=== PATIENT | female | born 1960 | race Caucasian/White ===

== ENCOUNTER 2022-01-23 15:20 | Inpatient (IN) | payer OTHER ==
[~2022-01-23] VITALS: Ht 160 cm; Wt 58.5 kg
--- NOTE | 2022-01-23 15:25 | NUR ---
Patient BIB [facility] to bed 1
[2022-01-23 15:40] VITALS: BP 72/51
--- NOTE | 2022-01-23 16:24 | NUR ---
61 y/o female biba from home, c/o dizziness, hypotensive, n&v, c-diff diarrhea for 3 days. skin is pale/cool/dry, pt has some redness/bruising on bl upper extremities. a&o x4, pt does not ambulate at this time. lungs clear bl, heart rate even and tachy at 100. pt denies dysuria, hematuria, urinary frequency or retention, or anyone sick in the household with the same symptoms, pt is diapered. pt denies any fever, cp, sob, or cough at this time. pt states pain is 10/10 at this time. patient positioned for comfort. hob elevated. bed down. ermd made aware of pt. en route, pt was hypotensive 76/48. pmh: hld, htn, neuropathy, copd nka
[2022-01-23 16:55] LABS: BASOPHILS # (AUTO) 0.2 K/uL (0.00-0.22); BASOPHILS % (AUTO) 1.9 % (0.0-2.0); EOSINOPHILS % (AUTO) 0.1 % (0.0-4.0); HEMATOCRIT 41.6 % (36-48); HEMOGLOBIN 13.6 g/dL (12.0-16.0); LYMPHOCYTES # (AUTO) 0.9 K/uL (2.5-16.5); LYMPHOCYTES % (AUTO) 9.3 % (20.5-51.1); MEAN CORPUSCULAR HEMOGLOBIN 33 pg (27-31); MEAN CORPUSCULAR HGB CONC 33 g/dL (33-37); MONOCYTES # (AUTO) 0.6 K/uL (0.8-1.0); MONOCYTES % (AUTO) 6.4 % (1.7-9.3); NEUTROPHILS # (AUTO) 8.1 K/uL (1.8-7.7); NEUTROPHILS % (AUTO) 82.3 % (42.2-75.2); PLATELET COUNT (AUTO) 352 K/uL (140-450); WHITE BLOOD COUNT (AUTO) 9.8 K/uL (4.8-10.8)
[2022-01-23 17:16] LABS: ALBUMIN 2.5 g/dL (3.4-5.0); ANION GAP 9.6 (8-16); CARBON DIOXIDE 34.2 mmol/L (21-32); CREATININE 0.6 mg/dL (0.6-1.3); POTASSIUM 5.8 mmol/L (3.5-5.1); TOTAL BILIRUBIN 0.7 mg/dL (0.0-1.0)
[2022-01-23] MEDS ORDERED: ALLO100T21 PO (17:19)
[2022-01-23] MEDS ORDERED: GABA300C PO (17:19)
[2022-01-23] MEDS ORDERED: FOLI0.8T9 PO (17:19)
--- NOTE | 2022-01-23 17:19 | NUR ---
nader swabbed at this time
--- NOTE | 2022-01-23 18:00 | NUR ---
[place] [id number]
--- NOTE | 2022-01-23 18:49 | NUR ---
pt was turned on left side, no wounds present, no bm at this time.
--- NOTE | 2022-01-23 19:23 | NUR ---
Pt report given to Kitty KEENE. Transfer of care at this time.
--- NOTE | 2022-01-23 19:30 | NUR ---
REPORT RECIEVED FROM GERMAN HOPPER
--- NOTE | 2022-01-23 19:56 | NUR ---
Eugenie almanza in [facility] - 01/23/22 at 1956 by NIYAH 20GM
--- NOTE | 2022-01-23 19:57 | NUR ---
20G IV CATH R AC PLACED
--- NOTE | 2022-01-23 20:36 | NUR ---
PT RESTING IN BED . DENIES ANY SOB OR CP. PAIN IN UPPER AND LOWER EXTREMITIES 10/10 PAIN. PT ON MONITOR
--- NOTE | 2022-01-23 20:52 | NUR ---
SURGERY AT BED SIDE. OBTAINED PT INFORMATION ON LABS AND HP
[2022-01-23] MEDS ORDERED: NACL 0.9% 1,000 ML IV ONE (21:35)
--- NOTE | 2022-01-23 21:41 | NUR ---
PATIENT STATES SHE FEELS RESTRICTED ON MOVEMENT AND IS UNCOMFORTABLE. HOB IS ELEVATED. DENIES ANY CP OR SOB.
[2022-01-23] MEDS ORDERED: LIDOCAINE 1% 500 MG/50 ML VIAL ONE (22:03)
[2022-01-23] MEDS ORDERED: MIDAZOLAM 5 MG/5 ML VIAL ONE (22:04)
--- NOTE | 2022-01-23 22:09 | NUR ---
DR ORDONEZ AT BEDSIDE
--- NOTE | 2022-01-23 22:16 | NUR ---
CONSENT SIGNED BY PATIENT. DR ORDONEZ EXPLAINED PROCEDURE TO PATIENT AT BEDSIDE.
--- NOTE | 2022-01-23 22:20 | NUR ---
PATIENTS BELONGINGS SENT WITH SURGERY. MED RECON. COMPLETED FROM DAYSHIFT RUCHI.
--- NOTE | 2022-01-23 22:24 | NUR ---
Patient will be admitted to care of DR SÁNCHEZ . Admited to ICU. Will go to SURGERY THEN BE ADMITED TO ICU BED 8. Belongings list completed. Report to SURGERY .
--- NOTE | 2022-01-23 22:24 | NUR ---
PT LEFT FOR SURGERY . LAST VITALS TAKEN.
[2022-01-23] MEDS ORDERED: ONDANSETRON 4 MG/2 ML VIAL IM/IVP PRN (23:40)
[2022-01-23] MEDS ORDERED: ZOLPIDEM 5 MG TAB PO PRN (23:40)
[2022-01-23] MEDS ORDERED: DOCUSATE SODIUM 100 MG GELCAP PO PRN (23:40)
[2022-01-23] MEDS ORDERED: HYDROcodone/APAP 7.5/325 MG 1 TAB PO PRN (23:40)
[2022-01-23] MEDS ORDERED: ACETAMINOPHEN 325 MG TAB PO PRN (23:40)
[2022-01-23] MEDS ORDERED: guaiFENesin DM 200/20 MG-10 ML 10 ML UDC PO PRN (23:40)
--- NOTE | 2022-01-23 23:45 | NUR ---
PT ARRIVED IN [facility] TO ICU BED 8 FROM OR DEPARTMENT, BEDSIDE REPORT RECEIVED. PER OPERATIONS SUPERVISOR 2ND SHIFT [place], R FEMORAL TLC REMOVED INCLUDING THE GUIDE WIRE THROUGH R FEMORAL SITE, R FEMORAL SITE COVERED WITH GAUZE WITH NO BLEEDING NOTED. PT IN NO APPARENT ACUTE DISTRESS AOX4, PERRLA, BRISK +3MM. BREATHING EVEN AND UNLABORED ON NC AT 2L/MIN, O2 SAT 96%, BILATERAL COARSE BREATH SOUNDS UPON AUSCULTATION. IV SITES ON R INDEX FINGER 22 G, R HAND 22 G, R AC 20 G, AND LEFT HAND 24 G. RECEIVING D5 NS AT 125 ML/HR. NOTED SCABS ON RIGHT UPPER AND LOWER EXTREMITIES, PICTURES TAKEN AND DOCUMENTED, PLEASE SEE WOUND NOTES. PT CONTINENT ABLE TO USE BEDPAN. ALL SAFETY MEASURES IN PLACE, BED LOCKED AT LOWEST POSITION, CALL LIGHT WITHIN REACH. WILL CONTINUE TO CLOSELY MONITOR AND FOLLOW POC.
[2022-01-23] MEDS ORDERED: NACL 0.9% 2,000 ML IV ONE (23:50)
[2022-01-23] MEDS ORDERED: NOREPINEPHRINE 4 MG in DEXTROSE 5% 250 ML IV PRN (23:50)
[2022-01-24] VITALS (9 sets, daily range): BP systolic 79–152; BP diastolic 53–108
[2022-01-24 00:10] LABS: CHOL/HDL RATIO 1.3 (1-4.5); PHOSPHORUS 4.3 mg/dL (2.5-4.9); THYROID STIMULATING HORMONE 2.15 uIU/mL (0.34-3.74)
[2022-01-24 00:38] LABS: FREE T4 (FREE THYROXINE) 1.15 ng/dL (0.76-1.46); MAGNESIUM 1.7 mg/dL (1.8-2.4)
[2022-01-24] MEDS ORDERED: cefTRIAXone 1,000 MG VIAL ONE (01:03)
[2022-01-24] MEDS ORDERED: WATER STERILE 10 ML MC ONE ×2 (01:04→01:09)
[2022-01-24] MEDS: VANCOMYCIN 500 MG VIAL PO SCH ×2 (01:17→06:00)
--- NOTE | 2022-01-24 01:42 | NUR ---
PHONE CALL TO [place], PTS EX PER PTS REQUEST; LEFT MESSAGE TO CALL BACK RN IN ICU
[2022-01-24] MEDS ORDERED: ALBUTEROL SULFATE/IPRATROPIU 3 ML SOL IH PRN (01:50)
--- NOTE | 2022-01-24 02:00 | NUR ---
PHONE CALL FROM [place], OF [place], PER PT OK TO GIVE INFORMATION TO HER, UPDATED ON PTS PRESENT CONDITION.PER CY[place]THIA, [place] IS SLEEPING AND WILL CALL IN AM, PT AWARE
--- NOTE | 2022-01-24 02:01 | NUR ---
PT SEEN AND ASSESSED. PATIENT HAS Hx COPD. PT AWAKE AND ALERT, AND PT IS ON 2L NASAL CANNULA WITH SPO2 OF 98%. WEAN PT OFF TO ROOM AIR AND PT DID NOT TOLERATE WELL. SPO2 DROPPED TO 84% TO 86%. PLACED PT BACK ON 2L NASAL CANNULA WITH SPO2 95%. BILATERAL CRACKLES BREATH SOUNDS ON AUSCULTATION. ORDERED HHN PRN TX AND OXYGEN FOR PT. RN NOTIFIED. WILL CONTINUE TO MONITOR PT.
--- NOTE | 2022-01-24 03:08 | NUR ---
BM NOTED; MODERATE AMT OF SOFT TO WATERY STOOL, UNABLE TO OBTAIN SPECIMEN FOR STOOL C.DIFF AND URINALYSIS; PT ALREADY URINATED AND DEFECATED AT THE SAME TIME
--- NOTE | 2022-01-24 05:00 | NUR ---
OFFERED PT BEDPAN, BM AND URINE NOTED, PT UNABLE TO PROVIDE SAMPLE OF URINE OR STOOL AT THIS TIME. PT IN NO APPARENT ACUTE DISTRESS, CONTINUES AOX4, NEURO ASSESSMENT DONE AND WNL. CONTINUES RECEIVING D5NS AT 125 ML/HR. ALL SAFETY MEASURES IN PLACE, WILL CONTINUE TO CLOSELY MONITOR AND FOLLOW POC.
[2022-01-24 05:33] LABS: BASOPHILS # (AUTO) 0.1 K/uL (0.00-0.22); BASOPHILS % (AUTO) 1.2 % (0.0-2.0); EOSINOPHILS % (AUTO) 0.2 % (0.0-4.0); HEMATOCRIT 41.4 % (36-48); HEMOGLOBIN 13.4 g/dL (12.0-16.0); LYMPHOCYTES % (AUTO) 10.4 % (20.5-51.1); MEAN CORPUSCULAR HEMOGLOBIN 32 pg (27-31); MEAN CORPUSCULAR HGB CONC 32 g/dL (33-37); MEAN CORPUSCULAR VOLUME 99.7 fL (80-94); MONOCYTES # (AUTO) 0.6 K/uL (0.8-1.0); MONOCYTES % (AUTO) 5.6 % (1.7-9.3); NEUTROPHILS # (AUTO) 8.2 K/uL (1.8-7.7); NEUTROPHILS % (AUTO) 82.6 % (42.2-75.2); PLATELET COUNT (AUTO) 280 K/uL (140-450); RED BLOOD CELL COUNT(AUTO) 4.15 MIL/uL (4.20-5.40); RED CELL DISTRIBUTION WIDTH 15.5 % (11.6-13.7)
[2022-01-24 05:51] LABS: ANION GAP 7.4 (8-16); CARBON DIOXIDE 30.6 mmol/L (21-32); CREATININE 0.6 mg/dL (0.6-1.3)
[2022-01-24] MEDS: DEXT 5% /NACL 0.9% 1,000 ML IV SCH ×4 (06:58→23:40)
--- NOTE | 2022-01-24 07:15 | NUR ---
RECEIVED PT ALERT AND ORIENTED X4, ABLE TO VERBALIZE NEEDS. ON O2 @2L VIA NASAL CANNULA. BREATHING EVEN AND UNLABORED. SINUS RHYTHM ON MONITOR. ABD SOFT WITH ACTIVE BOWEL SOUNDS. ABLE TO MOVE EXTREMITIES WITHOUT DIFFICULTY. PERIPHERAL IV 22 GAUGE ON RIGHT HAND INFUSING D5 NS @ 125ML/HR. PERIPHERAL IV 24 GAUGE ON LEFT HAND INTACT AND PATENT. DRESSINGS ON RIGHT FEMORAL INTACT WITH NO BLEEDING. KEPT CLEAN AND DRY. CALL LIGHT WITHIN REACH.
--- NOTE | 2022-01-24 07:15 | NUR ---
BEDSIDE REPORT GIVEN TO DAY SHIFT NURSE, PT IN NO APPARENT ACUTE DISTRESS, CONTINUES AOX4, NEURO ASSESSMENT WNL, BREATHING WITH NC AT 2L/MIN O2 SAT 98%.
[2022-01-24 08:09] LABS: APPEARANCE,URINE CLOUDY (CLEAR); BILIRUBIN,URINE NEGATIVE (NEGATIVE); BLOOD, URINE 2+ (NEGATIVE); COLOR,URINE AMBER (YELLOW); LEUKOCYTE ESTERASE ,URINE 3+ (NEGATIVE); NITRITE, URINE POSITIVE (NEGATIVE); UGLUCOSE NEGATIVE (NEGATIVE)
[2022-01-24] MEDS: MAGNESIUM OXIDE 400 MG TAB PO SCH (08:13)
[2022-01-24] MEDS: PANTOPRAZOLE 40 MG TABEC PO SCH (08:13)
[2022-01-24 08:25] LABS: CALCIUM OXALATE CRYSTALS,UR None Seen /HPF (None Seen); TRICHOMONAS,URINE None Seen /HPF (None Seen); YEAST,URINE Few /HPF (None Seen)
[2022-01-24 08:26] LABS: COARSE GRANULAR CASTS,URINE None Seen /LPF (None Seen); FINE GRANULAR CASTS,URINE None Seen /LPF (None Seen); HYALINE CASTS, URINE None Seen /LPF (None Seen); OTHER CASTS, URINE None Seen /LPF (None Seen); OTHER CRYSTALS,URINE None Seen /HPF (None Seen); RED BLOOD CELL CASTS,URINE None Seen /LPF (None Seen); TRIPLE PHOSPHATE CRYSTAL,UR None Seen /HPF (None Seen); URIC ACID CRYSTALS,URINE None Seen /HPF (None Seen); URINE AMORPHOUS URATE None Seen /HPF (None Seen); WAXY CASTS,URINE None Seen /LPF (None Seen)
[2022-01-24 08:28] LABS: BARBITURATE, URINE NEGATIVE ng/ml (NEG <=200); BENZODIAZEPINE, URINE NEGATIVE ng/mL (NEG <=200); CANNABINOID, URINE NEGATIVE ng/mL (NEG <=50); COCAINE, URINE NEGATIVE ng/mL (NEG <=300); OPIATE, URINE NEGATIVE ng/mL (NEG <=2000); PHENCYCLIDINE SCREEN,URINE NEGATIVE ng/mL (NEG <=25)
--- NOTE | 2022-01-24 09:33 | NUR ---
DR. SÁNCHEZ AT BEDSIDE EXAMINING PT. NEW ORDER FOR GABAPENTIN 300MG TID PO NOTED AND CARRIED OUT.
--- NOTE | 2022-01-24 09:45 | NUR ---
PERIPHERAL IV ON RIGHT HAND CAME OUT. NO BLEEDING NOTED. PT DENIES ANY PAIN. D5 NS INFUSING ON PERIPHERAL IV ON LEFT HAND @ 125ML/HR.
--- NOTE | 2022-01-24 11:54 | NUR ---
SEEN AND EXAMINED BY DR. TRIPATHI. RECEIVED DOWNGRADE ORDERS.
[2022-01-24] MEDS: GABAPENTIN 300 MG CAP PO SCH ×2 (12:20→16:19)
[2022-01-24] MEDS: VANCOMYCIN HCL 25 MG/ML SOLN PO SCH ×2 (12:20→17:52)
--- NOTE | 2022-01-24 13:45 | NUR ---
EX [place] AT BEDSIDE. PPE PROVIDED.
--- NOTE | 2022-01-24 14:15 | NUR ---
TRANSFERRED PT TO TELE ROOM 113. VSS. NO APPARENT DISTRESS.
--- NOTE | 2022-01-24 19:18 | NUR ---
WHILE RECEIVING REPORT FOR AM NURSES - I SEEING DR. SANDOVAL TALKING THE PT . AT BEDSIDE - HE LEFT NO FURTHER ORDER LEFT
--- NOTE | 2022-01-24 19:18 | NUR ---
NEURO WNL. ENDORSED TO FRONT LINE SUPERVISOR NURSE CONSUELO FOR CONTINUITY OF CARE.
--- NOTE | 2022-01-24 20:20 | NUR ---
C/O LEAKING IV SITE - PER PT. THE LEAKING IS MORE THAN AN HOUR AN NO ONE FIX IT - WILL ASSESS THE IV SITE . Addendum: 01/24/22 at 2022 by Madonna Johnson RN LEAKING IV SITE - REMOVE NEEDLE - INTACT NEEDLE , MIN. BLEEDING - WILL RE INSER NEW IV SITE - NO N/V , DIARRHEA AT THIS TIME - WILL PROVIDE FLUID TO DRINK AND FULL LIQ. DIET - WILL MONITOR THE BP . Addendum: 01/24/22 at 2027 by Madonna Johnson RN REFUSED IV RE INSERTION - EXPLAIN TO HER THE IMPORTANCE OF FLD REPLACEMENT THRU IVF - HAD DIARRHEA YESTERDAY - THE PT SAID OK BUT LET ME REST FOR AWHILE BEFORE NEW RE INSERTION PT SAID SHE WILL DRINK FLD WHILE NO IV LINE - CHARGE NURSE INFORMED .
--- NOTE | 2022-01-24 21:32 | NUR ---
BP 113/71 - NO N/V , NO DIARRHEA AT THIS TIME - VOIDED FREELY - GOOD U.O - WILL CONT. TO MONITOR .
[2022-01-25] VITALS: BP 105/67
[2022-01-25] MEDS: VANCOMYCIN HCL 25 MG/ML SOLN PO SCH ×4 (00:42→17:42)
--- NOTE | 2022-01-25 00:48 | NUR ---
W/ LARGE OLD SCAR ON MID. ABD - PER PT SHE HAD SURGERY LAST SEP. LAST YR BECAUSE OF DIVERTICULITIS - PER HER THE LARGE PART OF HER INTESTINES SURGICAL REMOVED .
--- NOTE | 2022-01-25 02:34 | NUR ---
PER PT SHE TAKING GABAPENTIN 600MG/ CAP TID P.O AT HOME - WILL INFORM
[2022-01-25 04:00] VITALS: BP 96/61
--- NOTE | 2022-01-25 04:00 | NUR ---
ROUNDS , NO COMPLAIN MADE .
--- NOTE | 2022-01-25 06:00 | NUR ---
AWAKE , REQUESTING , ICED WATER - WILL PROVIDE .
--- NOTE | 2022-01-25 07:10 | NUR ---
PATIENT HAS BEEN SCREENED AND CATEGORIZED MODERATE NUTRITION RISK. PATIENT WILL BE SEEN WITHIN 3-5 DAYS OF ADMISSION. 01/26/22-01/28/22 JAXSON BUNCH MS, RDN
--- NOTE | 2022-01-25 07:28 | NUR ---
RECEIVED REPORT FROM NIGHTSHIFT NURSE. PT IS ALERT AND AWAKE, A/OX4, BREATHING UNLABORED ON 2L NC. PT IS INCONTINENT DUE TO DIARRHEA EPISODES. SKIN IS WARM, DRY, AND HAS ECCHYMOSIS BILAT FOREARMS WITH LIGHT SCABBING. PT HAS 20G IV ON RIGHT HAND. PT IS STABLE, PLAN OF CARE WAS DISCUSSED.
--- NOTE | 2022-01-25 07:33 | NUR ---
ENDORSED - PT - STABLE .
[2022-01-25 07:35] LABS: ANION GAP 8.1 (8-16); BASOPHILS # (AUTO) 0.1 K/uL (0.00-0.22); BASOPHILS % (AUTO) 0.8 % (0.0-2.0); CARBON DIOXIDE 31.2 mmol/L (21-32); CREATININE 0.5 mg/dL (0.6-1.3); EOSINOPHILS # (AUTO) 0.1 K/uL (0-0.4); EOSINOPHILS % (AUTO) 0.7 % (0.0-4.0); HEMATOCRIT 38.7 % (36-48); HEMOGLOBIN 12.6 g/dL (12.0-16.0); LYMPHOCYTES # (AUTO) 1.1 K/uL (2.5-16.5); LYMPHOCYTES % (AUTO) 13.6 % (20.5-51.1); MEAN CORPUSCULAR HEMOGLOBIN 32 pg (27-31); MEAN CORPUSCULAR HGB CONC 33 g/dL (33-37); MEAN CORPUSCULAR VOLUME 99.1 fL (80-94); MONOCYTES # (AUTO) 0.4 K/uL (0.8-1.0); NEUTROPHILS # (AUTO) 6.3 K/uL (1.8-7.7); NEUTROPHILS % (AUTO) 79.9 % (42.2-75.2); PLATELET COUNT (AUTO) 244 K/uL (140-450); POTASSIUM 3.3 mmol/L (3.5-5.1); RED CELL DISTRIBUTION WIDTH 15.1 % (11.6-13.7); WHITE BLOOD COUNT (AUTO) 7.9 K/uL (4.8-10.8)
[2022-01-25] MEDS: DEXT 5% /NACL 0.9% 1,000 ML IV SCH ×3 (07:40→22:46)
[2022-01-25 08:00] VITALS: BP 101/69
[2022-01-25 08:08] LABS: T4 (THYROXINE) 4.8 ug/dL (4.5-12.0)
--- NOTE | 2022-01-25 09:30 | NUR ---
PT HAD A BM, LIQUID AND BROWN IN COLOR. PT WAS INCONTINENT OF THE BOWEL. PT WAS CHANGED AND REPOSITIONED. NO DISTRESS NOTED AT THIS TIME. ON 2L O2 NC WITH BREATHING UNLABORED. PT DENIES PAIN, N/V. WILL CONTINUE TO MONITOR.
[2022-01-25] MEDS: PANTOPRAZOLE 40 MG TABEC PO SCH (09:56)
[2022-01-25] MEDS: MAGNESIUM OXIDE 400 MG TAB PO SCH (09:57)
[2022-01-25] MEDS: GABAPENTIN 300 MG CAP PO SCH ×3 (09:57→17:41)
--- NOTE | 2022-01-25 11:30 | NUR ---
PT IS AWAKE AND ALERT. DR. ENRIQUEZ AT THE BEDSIDE ASSESSING PT. PT DENIES ANY DISTRESS OR DISCOMFORT AT THIS TIME. WILL CONTINUE TO MONITOR.
[2022-01-25 12:00] VITALS: BP 107/70
[2022-01-25] MEDS: POTASSIUM CHLORIDE 40 MEQ, LIDOCAINE MPF 1% 25 MG in NACL 0.9% 250 ML IV PRN (12:16)
--- NOTE | 2022-01-25 12:16 | NUR ---
PT WAS GIVEN KRIDER WITH LIDOCAINE ORDERED FOR POTASSIUM LEVEL OF 3.3. EDUCATION WAS PROVIDED AND PT VERBALIZED UNDERSTANDING.
--- NOTE | 2022-01-25 14:45 | NUR ---
PT VISUALLY ASSESSED. CURRENTLY AWAKE AND ALERT, DENIES ANY PAIN. IV SITE CLEAN, DRY AND INTACT, STILL RUNNING D5NS @ 125ML/HR. PT STABLE.
[2022-01-25 16:00] VITALS: BP_SYST 120; BP_SYST 87; BP_SYST 94; BP_DIAS 57; BP_DIAS 58
--- NOTE | 2022-01-25 16:50 | NUR ---
PT VISUALLY ASSESSED. CURRENTLY SLEEPING, EASILY AROUSED. IV SITE CLEAN, DRY AND INTACT, STILL RUNNING D5NS @ 125ML/HR. PT STABLE.
--- NOTE | 2022-01-25 17:45 | NUR ---
PT COMPLAINED OF MILD PAIN 01/21, STATING HER LIMBS HURT DUE TO HER NEUROPATHY. PT REQUESTED TO HAVE HER GABAPENTIN SCHEDULED. Addendum: 01/25/22 at 1748 by Margaret Rodriguez RN 300MG OF GABAPENTIN GIVEN PROMPTLY.
--- NOTE | 2022-01-25 19:20 | NUR ---
ENDORSED PT TO MICROBIOLOGY QUALITY CONTROL TECHNICIAN NURSE FOR CONTINUITY OF CARE. PT IS STABLE. PLAN OF CARE DISCUSSED.
--- NOTE | 2022-01-25 19:41 | NUR ---
GET THE REPORT FROM MORNING NURSE SIERRA, PATIENT IS LYING ON BED, PATIENT IS ALERT AND ORIENTED X 4, NO ANY COMPLAIN OF PAIN OR SHORTNESS OF BREATH AT THIS TIME, PATIENT IS RECEIVING OXYGEN 2 LITER VIA NASAL CANNULA, CALL LIGHT IS WITHIN THE REACH,WILL CONTINUE TO MONITOR PATIENT.
[2022-01-25 20:00] VITALS: BP 93/63
--- NOTE | 2022-01-25 22:14 | NUR ---
PATIENT IS LYING ON BED, VITAL SIGN IS WITHIN THE NORMAL RANGE,CALL LIGHT IS WITHIN THE REACH, WILL CONTINUE TO MONITOR PATIENT.
[2022-01-26] VITALS: BP 93/65
[2022-01-26] MEDS: VANCOMYCIN HCL 25 MG/ML SOLN PO SCH ×4 (00:08→17:16)
--- NOTE | 2022-01-26 00:18 | NUR ---
PATIENT IS LYING ON BED,VITAL SIGN IS WITHIN THE NORMAL RANGE,ALL SCHEDULE MEDICATION IS GIVEN PER DOCTOR ORDER ,CHANGED PATIENT ,CALL LIGHT IS WITHIN THE REACH ,WILL CONTINUE TO MONITOR PATIENT.
[2022-01-26 04:00] VITALS: BP 102/64
--- NOTE | 2022-01-26 04:25 | NUR ---
PATIENT IS LYING ON BED, NO ANY COMPLAIN OF PAIN OR SHORTNESS OF BREATH AT THIS TIME , VITAL SIGN IS WITHIN THE NORMAL RANGE, CALL LIGHT IS WITHIN THE REACH,WILL CONTINUE TO MONITOR PATIENT.
[2022-01-26 07:08] LABS: BASOPHILS % (AUTO) 0.6 % (0.0-2.0); EOSINOPHILS # (AUTO) 0.1 K/uL (0-0.4); EOSINOPHILS % (AUTO) 1.4 % (0.0-4.0); HEMATOCRIT 37.2 % (36-48); HEMOGLOBIN 12.4 g/dL (12.0-16.0); LYMPHOCYTES # (AUTO) 1.2 K/uL (2.5-16.5); LYMPHOCYTES % (AUTO) 17.3 % (20.5-51.1); MEAN CORPUSCULAR HEMOGLOBIN 33 pg (27-31); MEAN CORPUSCULAR HGB CONC 33 g/dL (33-37); MEAN CORPUSCULAR VOLUME 98.5 fL (80-94); MONOCYTES # (AUTO) 0.5 K/uL (0.8-1.0); MONOCYTES % (AUTO) 7.5 % (1.7-9.3); NEUTROPHILS % (AUTO) 73.2 % (42.2-75.2); PLATELET COUNT (AUTO) 220 K/uL (140-450); RED BLOOD CELL COUNT(AUTO) 3.77 MIL/uL (4.20-5.40); WHITE BLOOD COUNT (AUTO) 6.8 K/uL (4.8-10.8)
[2022-01-26 07:26] LABS: ANION GAP 4.9 (8-16); CARBON DIOXIDE 33.3 mmol/L (21-32); CREATININE 0.3 mg/dL (0.6-1.3); POTASSIUM 3.2 mmol/L (3.5-5.1)
--- NOTE | 2022-01-26 07:30 | NUR ---
RECEIVED REPORT FROM COBOL MAINFRAME DEVELOPER NURSE FOR CONTINUITY OF CARE. PT IN BED, AOX4. ON ROOM AIR, BREATHING EQUAL AND UNLABORED WITH NO RESPIRATORY DISTRESS NOTED. NO C/O PAIN. IV ON R HAND G20 RUNNING IVF ORDERED, FLUSHING WELL. SKIN WARM, DRY AND INTACT. ALL PRECAUTIONS IN PLACE. CALL LIGHT WITHIN REACH. WILL CONTINUE TO MONITOR.
--- NOTE | 2022-01-26 07:34 | NUR ---
GAVE REPORT TO MORNING NURSE BIANCA FOR CONTINUOS OF CARE,PATIENT IS STABLE.
[2022-01-26 08:00] VITALS: BP 100/69
[2022-01-26] MEDS: MAGNESIUM OXIDE 400 MG TAB PO SCH (08:29)
[2022-01-26] MEDS: PANTOPRAZOLE 40 MG TABEC PO SCH (08:29)
[2022-01-26] MEDS: DEXT 5% /NACL 0.9% 1,000 ML IV SCH ×3 (08:29→23:40)
[2022-01-26] MEDS: GABAPENTIN 300 MG CAP PO SCH ×3 (08:29→17:16)
--- NOTE | 2022-01-26 09:00 | NUR ---
DUE MEDS GIVEN, TOLERATED WELL
[2022-01-26] MEDS: POTASSIUM CHLORIDE 40 MEQ, LIDOCAINE MPF 1% 25 MG in NACL 0.9% 250 ML IV PRN (10:23)
--- NOTE | 2022-01-26 10:50 | NUR ---
WITH SOFT LIQUID BM THOMAS CARE DONE, STOOL SAMPLE COLLECTED
[2022-01-26 12:00] VITALS: BP 110/64
--- NOTE | 2022-01-26 13:00 | NUR ---
PT AWAKE IN BED, WATCHING TV, NO RESPIRATORY DISTRESS, NO C/O PAIN
--- NOTE | 2022-01-26 15:20 | NUR ---
PT ASLEEP IN BED, NO APPARENT DISTRESS, FLACC 0
[2022-01-26 16:00] VITALS: BP 104/69
--- NOTE | 2022-01-26 18:13 | NUR ---
PT AWAKE IN BED, NO C/O PAIN, NO RESPIRATORY DISTRESS ON 2L O2
[2022-01-26 20:00] VITALS: BP 104/69
--- NOTE | 2022-01-26 20:00 | NUR ---
GET THE REPORT FROM MORNING NURSE NOEMI ,PATIENT IS LYING ON BED , PATIENT IS ALERT AND ORIENTED X 4, CALL LIGHT IS WITHIN THE REACH ,WILL CONTINUE TO MONITOR PATIENT.
--- NOTE | 2022-01-26 21:00 | NUR ---
PATIENT IS LYING ON BED, VITAL SIGN IS WITHIN THE NORMAL RANGE, NO ANY COMPLAIN OF PAIN OR SHORTNESS OF BREATH AT THIS TIME,CALL LIGHT IS WITHIN THE REACH,WILL CONTINUE TO MONITOR PATIENT.
[2022-01-27] MEDS: VANCOMYCIN HCL 25 MG/ML SOLN PO SCH ×3 (00:09→12:37)
--- NOTE | 2022-01-27 01:10 | NUR ---
PATIENT IS LYING ON BED, NO ANY COMPLAIN OF PAIN AT THIS TIME, CHANGED PATIENT, CALL LIGHT IS WITHIN THE REACH,WILL CONTINUE TO MONITOR PATIENT.
[2022-01-27 04:00] VITALS: BP 107/67
--- NOTE | 2022-01-27 04:59 | NUR ---
PATIENT IS LYING ON BED, VITAL SIGN IS WITHIN THE NORMAL RANGE ,NO ANY COMPLAIN OF PAIN OR SHORTNESS OF BREATH AT THIS TIME,CALL LIGHT IS WITHIN THE REACH,WILL CONTINUE TO MONITOR PATIENT.
[2022-01-27] MEDS: DEXT 5% /NACL 0.9% 1,000 ML IV SCH ×2 (06:02→15:42)
[2022-01-27 06:51] LABS: BASOPHILS # (AUTO) 0.1 K/uL (0.00-0.22); EOSINOPHILS # (AUTO) 0.1 K/uL (0-0.4); EOSINOPHILS % (AUTO) 1.7 % (0.0-4.0); HEMATOCRIT 38.3 % (36-48); HEMOGLOBIN 12.6 g/dL (12.0-16.0); LYMPHOCYTES # (AUTO) 1.1 K/uL (2.5-16.5); LYMPHOCYTES % (AUTO) 20.1 % (20.5-51.1); MEAN CORPUSCULAR HEMOGLOBIN 32 pg (27-31); MEAN CORPUSCULAR HGB CONC 33 g/dL (33-37); MEAN CORPUSCULAR VOLUME 98.2 fL (80-94); MONOCYTES # (AUTO) 0.5 K/uL (0.8-1.0); MONOCYTES % (AUTO) 9.9 % (1.7-9.3); NEUTROPHILS # (AUTO) 3.6 K/uL (1.8-7.7); NEUTROPHILS % (AUTO) 67.3 % (42.2-75.2); PLATELET COUNT (AUTO) 210 K/uL (140-450); WHITE BLOOD COUNT (AUTO) 5.3 K/uL (4.8-10.8)
--- NOTE | 2022-01-27 06:56 | NUR ---
ALL DUE MEDS ARE GIVEN PER DOCTOR ORDER,CALL LIGHT IS WITHIN THE REACH, WILL CONTINUE TO MONITOR PATIENT.
[2022-01-27 07:00] LABS: ANION GAP 6.5 (8-16); CARBON DIOXIDE 33.5 mmol/L (21-32); CREATININE 0.5 mg/dL (0.6-1.3)
--- NOTE | 2022-01-27 07:25 | NUR ---
RECEIVED PT FROM PUBLIC SCHOOL TEACHER NURSE FOR CONTINUITY OF CARE. PT IS AWAKE, LYING IN BED. RESPIRATIONS EVEN AND UNLABORED ON 2 L NC. NO DISTRESS NOTED. A&O4, ABLE TO COMMUNICATE NEEDS. IV LINE AT LFA 22G. INFUSING D5NS AT 125ML/HR. CALL LIGHT WITHIN REACH. SAFETY MEASURES IN PLACE. WILL CONTINUE TO MONITOR.
--- NOTE | 2022-01-27 07:45 | NUR ---
PT AMBULATED ON ROOM AIR SPO2 RANGING FROM 82-84%, PT NOT IN ANY DISTRESS AT THE TIME. PT PLACED ON 2L NC AND BACK IN BED. NO DISTRESS NOTED.
[2022-01-27 08:00] VITALS: BP 114/69
[2022-01-27] MEDS: PANTOPRAZOLE 40 MG TABEC PO SCH (09:32)
[2022-01-27] MEDS: MAGNESIUM OXIDE 400 MG TAB PO SCH (09:32)
[2022-01-27] MEDS: GABAPENTIN 300 MG CAP PO SCH ×2 (09:33→12:38)
--- NOTE | 2022-01-27 09:35 | NUR ---
ADMINISTERED SCHEDULED MORNING MEDS. PT TEACHINGS DONE. PT VERBALIZED UNDERSTANDING. PT. TOLERATED WELL. PT REQUESTING TO UP HER NEURONTIN DOSAGE TO 600MG INSTEAD OF 300MG. WILL INFORM THE DRDottie CALL LIGHT WITHIN REACH. SAFETY MEASURES IN PLACE.
--- NOTE | 2022-01-27 11:30 | NUR ---
DR REED AT BEDSIDE.
--- NOTE | 2022-01-27 13:07 | NUR ---
DC PLANNING: THE PATIENT PRESENTED FROM HOME WITH C/O OF HYPERKALEMIA AND HYPONATREMIA. PATIENT NOW STABLE FOR DC, ORDER RECEIVED FOR SNF PLACEMENT. CM SPOKE WITH THE PATIENT AT BEDSIDE AND CONFIRMED HER ADDRESS AND PHONE NUMBER. SHE LIVES ALONE IN A SINGLE STORY HOUSE AND IS INDEPENDENT WITH ALL ACTIVITIES. SHE AMBULATES USING A WALKER AND HAS HER GROCERIES DELIVERED BY [employer] AND [facility]. SHE ALSO USES [employer] TO SEE HER PMD AND NEUROLOGIST AND HER EX- ALSO ASSISTS WITH TRANSPORT NEEDED. SHE HAS DME OF A FWW AND SHOWER CHAIR, AND HAD HOME [facility] A YEAR AGO FOR P.T. AND OT. THE PATIENT IS DECLINING SNF PLACEMENT BUT WOULD LIKE HOME HEALTH P.T., CM FAXED ORDER AND CLINICAL PACKET TO [facility] SO THEY CAN ARRANGE IT. THE PATIENTS EX-SPOUSE WILL PROVIDE A RIDE HOME, CM WILL FOLLOW. Addendum: 01/27/22 at 1403 by Elisa Alvares CM DC PLANNING: ORDER RECEIVED FOR HOME O2, FAXED TO [facility]. F/U WITH [facility], STATES THAT THEY ARE WORKING ON BOTH HOME HEALTH AND HOME O2 AND WILL CALL WITH AN UPDATE. [facility] WILL FOLLOW. Addendum: 01/27/22 at 1426 by Elisa Alvares CM DC PLANNING: [facility] SPOKE WITH GABRIEL AT [facility] ([phone]), HOME O2 IS BEING ARRANGED WITH [facility] ([phone]), PORTABLE O2 AND CONCENTRATOR WILL BE DELIVERED TO BEDSIDE NO LATER THAN 1900. HOME HEALTH WITH BE WITH [facility], PHONE NUMBER [phone]. PATIENTS RN UPDATED ON ABOVE ARRANGEMENTS, [facility] WILL FOLLOW. Addendum: 01/27/22 at 1524 by Elisa Alvares CM DC PLANNING: PER GABRIEL AT [facility] PATIENTS PLAN DOES NOT COVER HOME O2. [facility]QUILES SPOKE WITH [facility] TO GET PRICING WHICH WAS PRESENTED TO THE PATIENT (CONCENTRATOR $99/MO, REGULATOR $17.21/MONTH, TANKS INCLUDED FOR FREE). AQUILES GAVE THE PATIENT THE PHONE NUMBER FOR [facility] ([phone]) SO SHE CAN MAKE ARRANGEMENTS FOR PAYMENT AND DELIVERY. PATIENTS HOME HEALTH WILL MOVE FORWARD. [facility] WILL FOLLOW.
[2022-01-27] MEDS ORDERED: VANC125C11 PO (13:29)
[2022-01-27] MEDS ORDERED: LACT500C2 PO (13:29)
--- NOTE | 2022-01-27 14:15 | NUR ---
PT IN BED, RESTING. CLEAN PT, CHANGE SHEETS WITH CORRECTIONAL FOOD SERVICE SUPERVISOR. PT TOLERATED WELL. NO SIGNS OF DISTRESS NOTED. BREATHING EVEN AND UNLABORED. DENIES PAIN. WILL CONTINUE TO MONITOR.
--- NOTE | 2022-01-27 15:56 | NUR ---
DISCUSSED DISCHARGE PAPER TO PT. PT VERBALIZED UNDERSTANDING. PT IS GETTING DRESSED, READY TO LEAVE.
--- NOTE | 2022-01-27 16:10 | NUR ---
DC PLANNING PATIENT IS A 61 YR OLD FEMALE WHO PRESENTED TO [facility]/ED ON 01/23 FOR COMPLAINTS OF HYPERKALEMIA AND HYPONATREMIA. SW MET WITH PATIENT AT BEDSIDE FOR THE PURPOSE OF DISCUSSING AND GATHERING COLLATERAL INFORMATION. PATIENT REPORTS LIVING IN A SINGLE-STORY HOME ALONE, AT THE ADDRESS LISTED ON FILE. PATIENT REPORTS EMERGENCY CONTACT AND MEDICAL DECISION MAKERS [place] (EX SP[facility]) [phone]. PATIENT DENIES AD IN PLACE AND ACCEPTED AD PACKET PROVIDED BY [facility]. PATIENT REPORTS PCP DR. MARR AT [facility] AND REPORTS MEETING WITH REGULARLY, LAST VISIT WAS DONE VIRTUALLY ABOUT FOUR MONTHS PRIOR. PATIENT DENIES BARRIERS IN ACCESSING MEDICATIONS AND REPORTS THAT SHE TYPICALLY RECEIVES MEDICATION THROUGH MAIL ORDER VIA [facility]. PATIENT REPORTS BEING AMBULATORY WITH DME ASSISTANCE; WALKER AND BATH CHAIR. PATIENT REPORTS BEING INDEPENDENT WITH ALL ADLS. PATIENT REPORTS ADEQUATE FRIEND AND FAMILY SUPPORT AND REPORTS THAT HE [facility] PROVIDES TRANSPORTATION TO APPTS WITH PCP AND NEUROLOGIST WHEN AVAILABLE, OTHER TIMES PATIENT REPORTS UTILIZING [facility]. PATIENT REPORTS THAT DC PLAN IS TO RETURN HOME AND REPORTS WORKIGN CLOSELY WITH TO SET UP HH FOR PT SERVICES. PATIENT REPORTS RECEIVING HH FOR OT AND PT IN THE PAST, HOWEVER, WAS UNABLE TO RECALL NAME OF COMPANY AT ASSESSMENT. PATIENTS EX SPOUSE IS AT BEDSIDE AND REPORTS THAT HE WILL PROVIDING PATIENT WITH TRANSPORTATION HOME. PATIENT REPORTS CURRENTLY WORKING WITH [facility] TO ORDER 02. [facility] INQUIRED ON ADDITIONAL RESOURCES NEEDED, PATIENT DECLINED AT THIS TIME.
--- NOTE | 2022-01-27 16:21 | NUR ---
PT DISCHARGED HOME WITH FAMILY MEMBER. PT WHEELED OUT BY THE NURSE. REMOVED IV CATHETER IS INTACT. REMOVED WRIST BAND. PT BELONGINGS TAKEN UPON DISCHARGE. PT AWARE ABOUT HER O2 SUPPLY STATED "IT WILL BE DELIVERED TO MY HOME SOON I GET HOME". PT IS STABLE.
== END 2022-01-27 16:20 | disposition home health service (06) | DRG 853 ==
LOC: MED 15:20 → MIC 23:31 → MTU 01-24 14:05
PROVIDERS: ADMIT Family Medicine; ATTEND Family Medicine
PROC: 05CY0ZZ Extirpation of Matter from Upper Vein, Open Approach (ICD-10-PCS; principal; 2022-01-23)
PROC: B54MZZA Ultrasonography of Right Upper Extremity Veins, Guidance (ICD-10-PCS; 2022-01-23)
PROC: B51MZZA Fluoroscopy of Right Upper Extremity Veins, Guidance (ICD-10-PCS; 2022-01-23)
DX: A41.9 Sepsis, unspecified organism (principal); E43 Unspecified severe protein-calorie malnutrition; J96.00 Acute respiratory failure, unspecified whether with hypoxia or hypercapnia; R65.21 Severe sepsis with septic shock; E87.1 Hypo-osmolality and hyponatremia; N39.0 Urinary tract infection, site not specified; T82.524A Displacement of infusion catheter, initial encounter; A04.72 Enterocolitis due to Clostridium difficile, not specified as recurrent; E86.0 Dehydration; E78.5 Hyperlipidemia, unspecified; E87.5 Hyperkalemia; J44.9 Chronic obstructive pulmonary disease, unspecified; Z20.822 Contact with and (suspected) exposure to COVID-19; R74.01 Elevation of levels of liver transaminase levels; Y83.8 Other surgical procedures as the cause of abnormal reaction of the patient, or of later complication, without mention of misadventure at the time of the procedure; Y71.2 Prosthetic and other implants, materials and accessory cardiovascular devices associated with adverse incidents; Z90.49 Acquired absence of other specified parts of digestive tract; Z85.3 Personal history of malignant neoplasm of breast; Z68.22 Body mass index [BMI] 22.0-22.9, adult; Y92.89 Other specified places as the place of occurrence of the external cause
CPT/HCPCS: 36415; 36600; 71045; 74018; 77003; 80048; 80053; 80305; 81001; 82150; 82550; 82553; 82803; 83036; 83605; 83690; 83735; 83880; 84100; 84436; 84439; 84443; 84479; 84484; 85025; 85610; 85730; 87040; 87045; 87070; 87081; 87086; 93005; 96360; 96361; 97116; 97163-GP; 99291; J0696; J2001; J2250; J3370; J3480; J7030; J7060; Q0092